=== PATIENT | female | born 1970 | race Caucasian/White ===

== ENCOUNTER 2023-09-12 17:08 | Emergency (ER) | payer MEDICARE, OTHER, SELFPAY ==
[2023-09-12 17:13] VITALS: BP 169/118
[2023-09-12 17:37] LABS: % Basophils 0.6 % (0-2); % Eosinophils 1.2 % (0-6); % Immature Granulocytes 0.6 % (0-0.5); % Lymphocytes 36.1 % (20.5-51.1); % Neutrophils 55.5 % (42.2-75.2); Absolute Eosinophils 0.1 10^3/uL (0-0.7); Absolute Lymphocytes 1.8 10^3/uL (1.2-3.4); Absolute Monocytes 0.3 10^3/uL (0.1-0.6); Absolute Neutrophils 2.8 10^3/uL (1.4-6.5); Hematocrit 35.9 % (37.0-47.0); Hemoglobin 12.1 g/dL (12.0-16.0); Mean Corp Hgb Conc. 33.7 g/dL (33.0-37.0); Mean Corpuscular Hgb 30.4 pg (27.0-31.0); Mean Corpuscular Volume 90.2 fL (81.0-99.0); Mean Platelet Volume 9.3 fL (7.4-10.4); Nucleated Red Blood Cells % 0 %; Platelet Count 213 10^3/uL (130-400); Red Blood Cell Count 3.98 10^6/uL (4.20-5.40); Red Cell Dist. Width 12.9 % (11.5-14.5)
[2023-09-12 17:55] LABS: ALT (SGPT) 43 U/L (0-35); AST (SGOT) 48 U/L (14-36); Albumin 4.5 g/dl (3.5-5.0); Alkaline Phosphatase 84 U/L (38-126); Blood Urea Nitrogen 12 mg/dl (7-17); Calcium 9.4 mg/dl (8.4-10.2); Carbon Dioxide 30 mmol/L (22-30); Chloride 101 mmol/L (98-107); Glucose 104 mg/dl (70-99); Potassium 4.5 mmol/L (3.5-5.1); Sodium 139 mmol/L (135-145); Total Bilirubin 0.4 mg/dl (0.2-1.3); Total Protein 7.6 g/dl (6.3-8.2); eGFR > 60.00
[2023-09-12 18:03] LABS: Troponin I < 0.012 ng/ml
[2023-09-12 18:07] VITALS: BP 153/83
[2023-09-12 19:23] VITALS: BP 148/92
--- NOTE | 2023-09-12 20:52 | ED.GENMED ---
History of Present Illness
General
Chief Complaint: Chest Pain
Source: patient
Exam Limitations: none
Time Seen by Provider: 09/12/23 17:52
Nursing documentation reviewed up to this point in time: agreed with
Travel History
Have you had any contact with someone who has COVID-19?: No
Do you have any symptoms of coronavirus? Fever > 100 degrees, chills, cough, shortness of breath, sore throat, loss of taste or smell, muscle aches, or headache?: No
History of Present Illness
History of Present Illness:
Patient to ED with complaint of left anterior chest pain. Symptoms started 3 days ago. Reports pain is sharp and intermittent. Aggravated by activity Reports a brief episode of dizziness this AM. She was seen by and sent to ED for eval.
Currently she is pain free. No n/v/diaphoresis. Brought self to ED.
Past History
Past History
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
ED Past Surgical History: Orthopedic (Left knee ACL repair, bilateral knee arthroscopies, rhinoplasty, breast augmentation surgery, bilateral mastectomy, hysterectomy, transplant reconstruction) and Other (Breast augmentation 2006, LEEP procedure
2003, rhinoplasty); Negative Cardiac
Social History
Tobacco: Non-smoker
Alcohol: Occasional
Drug: None
Personal:
Living: with family
Employment: Employed
Family History
Family History: Hypertension
Review of Systems
Review of Systems
Allergies reviewed?: Yes
All Other Systems: ROS reviewed and negative except as documented in HPI and ROS
Constitutional: Reports no symptoms
EENT: Reports no symptoms
Respiratory: Reports no symptoms
Cardiac: Reports chest pain
ABD/GI: Reports no symptoms
: Reports no symptoms
Musculoskeletal: Reports no symptoms
Skin: Reports no symptoms
Neurological: Reports no symptoms
Psychiatric: Reports no symptoms
Phy Exam
General Physical Exam
General Presentation: well appearing and no apparent distress
General age: appears stated age
General Skin: warm and dry
General Habitus: normal
Cardiovascular Exam
Cardiovascular Exam: regular rate/rhythm and no edema
Pulmonary Exam
Pulmonary Exam: lungs clear and no respiratory distress
Gastrointestinal Exam
Gastrointestinal Exam: normal bowel sounds, non tender and soft
Musculoskeletal Exam
Musculoskeletal Exam: full ROM and neuro vasc intact
Skin Exam
Skin Exam: normal color and warm/dry
Psychiatric Exam
Psychiatric Exam: normal mood/affect
Scores
Heart Score for Chest Pain Patients
STEMI patient?: No
History: Slightly or Non-Suspicious
ECG: Normal
Age: >45 - <65 years
Risk Factors: 1 or 2 Risk Factors
Troponin: </= Normal Limit
Heart Score for Chest Pain Patients: 2
Heart Score Risk: 2.5% MACE over next 6 weeks
Course
Orders/Labs/Results
Orders:
Orders
09/12/23 17:14
Electrocardiogram (*1) Urgent
Reason for Study: Chest Pain
EKG- Treatment ONCE
09/12/23 17:27
Complete Blood Count/With Diff Urgent
Comprehensive Metabolic Panel Urgent
Troponin I Urgent
09/12/23 18:19
CR Chest - 2 Views Urgent
Comment:
Reason For Exam: pain
Abnormal Lab Results
09/12/23
17:27
RBC 3.98 L 10^6/uL
(4.20-5.40)
Hct 35.9 L %
(37.0-47.0)
Immature Gran % 0.6 H %
(0-0.5)
Glucose 104 H mg/dl
(70-99)
AST 48 H U/L
(14-36)
ALT 43 H U/L
(0-35)
09/12/23 17:27
09/12/23 17:27
Vital Signs
Initial and Last Documented VS:
Initial Vital Signs
Temp Pulse Resp BP Pulse Ox
97.8 F 100 16 169/118 97
09/12/23 17:13 09/12/23 17:13 09/12/23 17:13 09/12/23 17:13 09/12/23 17:13
Last Documented Vital Signs
Temp Pulse Resp BP Pulse Ox
97.8 F 95 19 148/92 97
09/12/23 17:13 09/12/23 19:23 09/12/23 19:23 09/12/23 19:23 09/12/23 17:13
*Radiology
Radiology exam reviewed: radiology read reviewed
*Pulse Oximetry
Patient hypoxic: no
*Critical Care Note
Total Time (30-74mins, 75-104mins- exclusive of procedures): Not Applicable
ED Attending Note
-
Portions of this chart may have been created with voice recognition software.� Occasional wrong word or��sound alike� substitutions may have occurred due to the inherent limitations of voice recognition software.
Discharge Plan
Departure
Patient Disposition: Home (Routine Discharge)
Date of Disposition: 09/12/23
Time of Disposition: 19:30
Patient with high blood pressure during this ER visit?: No
Condition: Good
Covid-19: Not Applicable
Discharge Problem:
Chest pain
Instructions: Chest Pain NON-[facility] [employer] Follow Up
Prescriptions:
No Action
trazodone 100 MG tablet
100 mg PO HS
pantoprazole 40 MG tablet,delayed release (DR/EC)
40 mg PO DAILY
multivitamin with folic acid [Tab-A-Yessica] 1 TABLET tablet
1 tab PO DAILY
ibuprofen [Advil] 200 MG tablet
600 mg PO PRN PRN (Reason: pain)
acetaminophen 325 MG tablet
650 mg PO Q4HPRN PRN (Reason: mild pain,headache, temp >101F) 0RF
paroxetine HCl 10 MG tablet
30 mg PO DAILY 0RF
atorvastatin 20 MG tablet
20 mg PO QPM 0RF
hydrocodone-acetaminophen 1 TABLET tablet
2 tab PO Q4HPRN PRN (Reason: moderate pain) 0RF
levothyroxine 75 MCG tablet
75 mcg PO DAILY@0700 0RF
docusate sodium 100 MG capsule
100 mg PO BID 0RF
fluticasone propionate 1 SPRAY spray,suspension
2 spray intranasal BID 0RF
Buprenorphine [Butrans]
1 ea transdermal .WEEKLYMON 0RF
Fexofenadine/Pseudoephedrine [Elda-D 24 Hour Tablet]
1 ea PO BID 0RF
hydrocodone-acetaminophen 1 TABLET tablet
1 - 2 tab PO Q4HPRN PRN (Reason: pain) Qty: 6 0RF
sucralfate [Carafate] 100 mg/mL suspension
10 ml PO QID Qty: 1000 0RF
Rx Instructions:
2 teaspoons 30 min prior to meals and qhs
ondansetron 4 mg tablet,disintegrating
4 mg PO Q8H PRN (Reason: nausea and vomiting) 2 Days Qty: 6 0RF
Referrals:
Sierra Rivera DO [Family Provider] -
Activity Restrictions/Additional Instructions:
Follow up with your rn enterostomal in the AM as discussed. Return to the emergency department immediately for any changes in/worsening of your symptoms.
Interventions
Interventions:
*Risk Screen - Suicide Last Done: 09/12/23 17:19
*General Assessment Last Done: 09/12/23 17:48
*Neglect/Abuse Screening Last Done: 09/12/23 17:19
ED- Fall Risk Assessment Last Done: 09/12/23 17:48
*ED COVID-19 Vaccine History Last Done: 09/12/23 17:19
*Nursing Disposition Last Done: 09/12/23 20:00
ED- Cardiac Assessment Last Done: 09/12/23 17:48
Discharge Date and Time
Discharge Date/Time: 09/12/23 20:01
Print Language: AUSTRALIAN
== END 2023-09-12 20:01 | disposition home or self-care (01) ==
LOC: EMR 17:08
PROVIDERS: Emergency Medicine; EMERGENCY PHYSICIAN Emergency Medicine; FAMILY PHYSICIAN Family Medicine
DX: R07.89 Other chest pain (principal); I10 Essential (primary) hypertension; D64.9 Anemia, unspecified; Z82.49 Family history of ischemic heart disease and other diseases of the circulatory system; Z85.3 Personal history of malignant neoplasm of breast; Z90.710 Acquired absence of both cervix and uterus
CPT/HCPCS: 99283; 71046; 80053; 84484; 85025; 93005